=== PATIENT | female | born 1995 | race Caucasian/White ===

== ENCOUNTER 2018-06-23 08:58 | Inpatient (IN) | payer BC ==
[2018-06-23] MEDS ORDERED: PROPOFOL 20 ML (11:46)
[2018-06-23] MEDS ORDERED: MIDAZOLAM 1 MG/ML 2 ML INJ (11:46)
[2018-06-23] MEDS ORDERED: ROPIVACAINE 0.2% 20 ML VIAL (11:46)
[2018-06-23] MEDS ORDERED: ROCURONIUM 50 MG INJ (11:46)
[2018-06-23] MEDS ORDERED: FENTAnyl 50 MCG/ML VIAL ×2 (11:46→14:01)
[2018-06-23] MEDS ORDERED: ONDANSETRON 4 MG INJ IV ×2 (12:00→23:00)
[2018-06-23] MEDS ORDERED: HYDROmorphONE 1 MG/5 ML IV SYRINGE IV (12:00)
[2018-06-23] MEDS ORDERED: METOCLOPRAMIDE 10 MG INJ IV (12:00)
[2018-06-23] MEDS ORDERED: EPHEDrine SULFATE 50 MG/5 ML SYG IV (12:00)
[2018-06-23] MEDS ORDERED: MEPERIDINE 25 MG INJ IV (12:00)
[2018-06-23] MEDS ORDERED: FENTAnyl 50 MCG/ML VIAL IV ×3 (12:00)
[2018-06-23] MEDS ORDERED: BUPIVACAINE 0.25% (MPF) 30 ML INJ (13:32)
[2018-06-23] MEDS: CEFAZOLIN 2 GM/50 ML (PMX) 50 ML IVPB (13:35)
[2018-06-23] MEDS ORDERED: METOCLOPRAMIDE 10 MG INJ (14:20)
[2018-06-23] MEDS ORDERED: DEXAMETHASONE 4 MG/ML 1 ML INJ (14:20)
[2018-06-23] MEDS ORDERED: ONDANSETRON 4 MG INJ (14:20)
[2018-06-23] MEDS ORDERED: SUGAMMADEX SODIUM 200 MG/2 ML VIAL IV (14:20)
[2018-06-23] MEDS ORDERED: KETOROLAC 30 MG INJ (14:20)
[2018-06-23] MEDS: HYDROmorphONE 1 MG/5 ML IV SYRINGE IV ×2 (14:40→14:52)
[2018-06-23] MEDS: HYDROCODONE/APAP (5/325) TAB PO (15:14)
[2018-06-23] MEDS: DIPHENHYDRAMINE 50 MG INJ IV (15:48)
[2018-06-23] MEDS: IBUPROFEN 800 MG TAB PO (20:24)
[2018-06-23] MEDS: SOD CHLORIDE 0.9% 1,000 ML IV (20:25)
[2018-06-23] MEDS: KETOROLAC 30 MG INJ IV (23:04)
[2018-06-24 05:06] LABS: ADD MAN DIFF? NO
[2018-06-24 05:11] LABS: WHITE BLOOD COUNT 12.7 10^3/ul (4.8-10.8)
[2018-06-24 05:11] LABS: BASOPHILS % 0.2 % (0.0-2.0); HEMATOCRIT 37.7 % (37.0-47.0); LYMPHOCYTES # 1.8 10^3/ul (0.8-2.9); LYMPHOCYTES % 14.1 % (18.0-55.0); MEAN CORPUSCULAR HEMOGLOBIN 25.8 pg (29.0-33.0); MEAN CORPUSCULAR HGB CONC 31.8 g/dl (32.0-37.0); MEAN CORPUSCULAR VOLUME 80.9 fl (72.0-104.0); MONOCYTE # 0.6 10^3/ul (0.3-0.9); MONOCYTES % 5.1 % (0.0-13.0); NEUTROPHIL # 10.2 10^3/ul (1.6-7.5); NEUTROPHILS % 80.4 % (30.0-74.0); PLATELET COUNT 532 10^3/UL (140-415); RED BLOOD COUNT 4.66 10^6/ul (4.20-5.40); RED CELL DISTRIBUTION WIDTH 13.9 % (11.5-14.5)
[2018-06-24 05:46] LABS: ALANINE AMINOTRANSFERASE 45 IU/L (13-69); ALBUMIN 3.8 g/dl (3.3-4.9); ALBUMIN/GLOBULIN RATIO 1.18; ALKALINE PHOSPHATASE 68 IU/L (42-121); ANION GAP 13 (8-16); ASPARTATE AMINO TRANSFERASE 61 IU/L (15-46); BILIRUBIN,INDIRECT 0.6 mg/dl (0-1.1); BILIRUBIN,TOTAL 0.6 mg/dl (0.2-1.3); BLOOD UREA NITROGEN 4 mg/dl (7-20); CALCIUM 9.2 mg/dl (8.4-10.2); CARBON DIOXIDE 24 mmol/L (21-31); CHLORIDE 111 mmol/L (97-110); CREATININE 0.72 mg/dl (0.44-1.00); GLUCOSE 103 mg/dl (70-220); POTASSIUM 4.6 mmol/L (3.5-5.1); SODIUM 143 mmol/L (135-144)
[2018-06-24] MEDS: PANTOPRAZOLE 40 MG INJ IV (06:17)
[2018-06-24] MEDS: KETOROLAC 30 MG INJ IV ×2 (06:18→12:17)
[2018-06-24] MEDS ORDERED: IBUPROFEN 800 MG TAB PO (23:00)
== END 2018-06-24 17:00 | disposition home or self-care (01) | DRG 419 ==
LOC: SDS 08:58 → REC 16:30 → MS1 18:50
PROC: 0FT44ZZ Resection of Gallbladder, Percutaneous Endoscopic Approach (ICD-10-PCS; principal; 2018-06-23 13:00)
DX: K80.20 Calculus of gallbladder without cholecystitis without obstruction (principal); E66.9 Obesity, unspecified; Z68.37 Body mass index [BMI] 37.0-37.9, adult
CPT/HCPCS: 80053; 85025; 88304